=== PATIENT | female | born 1985 | race Caucasian/White ===

== ENCOUNTER → 2016-10-20 | Outpatient (CLI) | payer BC ==
[~2016-10-20] MED LIST: JOLESSA 30 MCG-1 TAB PO; NORCO 325 MG-51 TAB PO
== END ==
LOC: MC.RAD 08:11
DX: Z12.39 Encounter for other screening for malignant neoplasm of breast (principal)

== ENCOUNTER → 2017-11-06 | Outpatient (CLI) | payer BC | LOC: COL.RAD 13:44 | DX: R10.32 Left lower quadrant pain (principal) ==

== ENCOUNTER → 2017-11-16 | Outpatient (CLI) | payer BC | LOC: COL.RAD 07:15 | DX: K63.89 Other specified diseases of intestine (principal); Z90.89 Acquired absence of other organs | CPT/HCPCS: Q9967 ==